=== PATIENT | male | born 1975 | race Caucasian/White ===

== ENCOUNTER 2024-09-14 04:10 | Emergency (ER) | payer BC, SELFPAY ==
[2024-09-14 04:13] VITALS: BP 124/84
[2024-09-14 04:53] LABS: % Basophils 0.4 % (0-2); % Eosinophils 4.1 % (0-6); % Immature Granulocytes 0.5 % (0-0.5); % Lymphocytes 28.8 % (20.5-51.1); % Monocytes 9.3 % (1.7-9.3); % Neutrophils 56.9 % (42.2-75.2); Absolute Eosinophils 0.2 10^3/uL (0-0.7); Absolute Lymphocytes 1.6 10^3/uL (1.2-3.4); Absolute Monocytes 0.5 10^3/uL (0.1-0.6); Absolute Neutrophils 3.2 10^3/uL (1.4-6.5); Hemoglobin 13.4 g/dL (13.0-18.0); Mean Corp Hgb Conc. 34.4 g/dL (33.0-37.0); Mean Corpuscular Hgb 28.5 pg (27.0-31.0); Mean Platelet Volume 9.8 fL (7.4-10.4); Nucleated Red Blood Cells % 0 % (-); Platelet Count 284 10^3/uL (130-400); Red Cell Dist. Width 12.5 % (11.5-14.5); White Blood Cell Count 5.6 10^3/uL (4.8-10.8)
--- NOTE | 2024-09-14 05:11 | ED.GENMED ---
History of Present Illness
General
Chief Complaint: Abdominal Pain
Source: patient
Exam Limitations: none
Time Seen by Provider: 09/14/24 04:59
Nursing documentation reviewed up to this point in time: agreed with
History of Present Illness
History of Present Illness:
Pleasant 49-year-old male presents to the emergency department with upper abdominal pain. He states that he 'feels like his ribs need to crack '. Patient states that this pain began yesterday morning. He states that the pain waxed and waned
throughout the day. He was awakened from sleep tonight so he came into the emergency department. He does report breathing exacerbates the pain. Denies nausea or vomiting. Reports no other medical history. States he did drink some alcoholic
beverages on Thursday but felt fine on Thursday and Thursday. 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 Reports no fever, chills, nausea or vomiting.
Past History
Past History
ED Past Medical History: None
ED Past Surgical History: None
Social History
Tobacco: Non-smoker
Alcohol: Occasional
Drug: None
Personal:
Living: with family
Employment: Employed
Family History
Family History: Other
Review of Systems
Review of Systems
Allergies reviewed?: Yes
All Other Systems: ROS reviewed and negative except as documented in HPI and ROS
Constitutional: Reports no symptoms
EENT: Reports no symptoms
Respiratory: Reports no symptoms
Cardiac: Reports no symptoms
ABD/GI: Reports abdominal pain
: Reports no symptoms
Musculoskeletal: Reports no symptoms
Skin: Reports no symptoms
Neurological: Reports no symptoms
Endocrine: Reports no symptoms
Hematologic/Lymphatic: Reports no symptoms
Psychiatric: Reports no symptoms
Phy Exam
General Physical Exam
General Presentation: well appearing and no apparent distress
General Skin: warm and dry
General Habitus: normal
General Mental: alert
General Hydration: appears well hydrated
ENT Exam
ENT Exam: EOMI, pharynx normal, neck supple and normocephalic
Eye Exam
Eye Exam: PERRL, cornea clear and conjunctiva normal
Cardiovascular Exam
Cardiovascular Exam: regular rate/rhythm, no edema, no murmur and normal peripheral pulses
Pulmonary Exam
Pulmonary Exam: lungs clear, no respiratory distress, no rales, no crackles, no rhonchi, no stridor, no wheezing and no cough
Gastrointestinal Exam
Gastrointestinal Exam: normal bowel sounds, non tender, soft, no organomegaly, no pulsatile mass and non distended
Neurological Exam
Neurological Exam: alert, oriented x3, no motor deficits and speech normal
Musculoskeletal Exam
Musculoskeletal Exam: full ROM and no edema
Skin Exam
Skin Exam: normal color, warm/dry, no rash and no petechia
Psychiatric Exam
Psychiatric Exam: normal mood/affect
Scores
PE Wells Score
Symptoms of DVT: No
No alternative diagnosis better explains the illness: No
Tachycardia with pulse > 100: No
Immobilization (>=3 days) or surgery within previous 4 weeks: No
Prior history of DVT or pulmonary embolism: No
Presence of hemoptysis: No
Presence of malignancy: No
Pulmonary Embolism Risk Score: 0
Probability of PE: Pt is low risk
Course
Orders/Labs/Results
Orders:
Orders
09/14/24 04:42
Complete Blood Count/With Diff Urgent
Comprehensive Metabolic Panel Urgent
Lipase Urgent
Comment: ADD ON
Troponin I Urgent
09/14/24 05:11
Add On- LAB Urgent
Tests Added?: lipase
US Abdomen Complete/Upper Urgent
Comment:
Reason For Exam: upper abd pain
09/14/24 05:49
CR Chest - 2 Views Urgent
Comment:
Reason For Exam: rib pain
09/14/24 06:34
Electrocardiogram (*1) Urgent
Reason for Study: Abdominal Pain
EKG- Treatment ONCE
09/14/24 06:52
D-Dimer Urgent
Abnormal Lab Results
09/14/24
04:42
Glucose 100 H mg/dl
(70-99)
09/14/24 04:42
09/14/24 04:42
Vital Signs
Initial and Last Documented VS:
Initial Vital Signs
Temp Pulse Resp BP Pulse Ox
97.9 F 67 16 124/84 100
09/14/24 04:13 09/14/24 04:13 09/14/24 04:13 09/14/24 04:13 09/14/24 04:13
Last Documented Vital Signs
Temp Pulse Resp BP Pulse Ox
97.9 F 61 17 113/71 97
09/14/24 04:13 09/14/24 06:29 09/14/24 06:29 09/14/24 06:29 09/14/24 06:29
*Critical Care Note
Total Time (30-74mins, 75-104mins- exclusive of procedures): Not Applicable
Update Note
Update Note:
US abdomen, complete
No prior imaging for comparison
IMPRESSION:
�Heterogeneous hepatic parenchyma, without focal liver mass where seen. Smooth capsular contours. Hepatopetal portal venous flow.
�Normal gallbladder, without shadowing gallstone. No significant gallbladder wall thickening or pericholecystic fluid. Reported negative sonographic Mehta sign.
�No significant intrahepatic or extrahepatic biliary ductal dilation. CBD measures 4.4 mm.
�Pancreas normal where seen.
�Normal appearance of the bilateral kidneys, without hydronephrosis, nephrolithiasis or striated nephrogram.
� Spleen measures 10.3 cm, normal.
� Nonaneurysmal abdominal aorta
Patient is resting comfortably at this time.
D-dimer added as patient stated that his brother had a PE in the past. Well score makes patient low risk
ED Attending Note
-
Portions of this chart may have been created with voice recognition software.� Occasional wrong word or��sound alike� substitutions may have occurred due to the inherent limitations of voice recognition software.
Discharge Plan
Departure
Instructions: Abdominal Pain
Prescriptions:
No Action
No Current Medications
0
Referrals:
TAMRA RAVI, DO [Family Provider] -
Activity Restrictions/Additional Instructions:
It was a pleasure meeting you and taking part in your care. We hope for your continued healing and wellness.
Please read discharge instructions in their entirety. However, they are for general education and may not describe your exact diagnosis at discharge. Information on your ER visit and medical conditions were discussed with you along with appropriate
follow up information...
If indicated, please take your medications as instructed and indicated on discharge paperwork.
Please schedule a follow up appointment as directed. Call to schedule an appointment
Please return to the emergency department with ANY change in, persisting, or worsening of symptoms. If any of your symptoms do not improve, or persist, or become more severe within 6-12 hours, please return to the emergency department for further
care.
Please return to the emergency department if you develop a headache, neck pain/stiffness, fever greater than 100.4F, chest pain, shortness of breath, persistent nausea, vomiting, slurred speech, difficulty walking, numbness/tingling, weakness, signs
of infection or any other symptoms that are worrisome to you.
If you have any questions or concerns please do not hesitate to call the Hospital at or E-mail me directly at [email or web address]
Interventions
Interventions:
*Risk Screen - Suicide Last Done: 09/14/24 04:13
*Neglect/Abuse Screening Last Done: 09/14/24 04:13
*ED- Fall Risk Assessment Last Done: 09/14/24 04:13
*ED COVID-19 Vaccine History Last Done: 09/14/24 04:13
YX-Ssvmjq-Pahzmvuvgo Assessment Last Done: 09/14/24 04:43
Discharge Date and Time
Print Language: IRISH
[2024-09-14 05:16] LABS: ALT (SGPT) 23 U/L (0-50); AST (SGOT) 24 U/L (17-59); Albumin 4.3 g/dl (3.5-5.0); Alkaline Phosphatase 46 U/L (38-126); Blood Urea Nitrogen 19 mg/dl (9-20); Calcium 9.8 mg/dl (8.4-10.2); Carbon Dioxide 29 mmol/L (22-30); Glucose 100 mg/dl (70-99); Total Bilirubin 0.8 mg/dl (0.2-1.3); eGFR > 60.00
[2024-09-14 05:23] LABS: Chloride 105 mmol/L (98-107); Potassium 4.8 mmol/L (3.5-5.1); Sodium 142 mmol/L (135-145)
[2024-09-14 05:25] LABS: Troponin I < 0.012 ng/ml
[2024-09-14 05:49] LABS: Lipase 111 U/L (23-300)
[2024-09-14 06:29] VITALS: BP 113/71
[2024-09-14 07:30] VITALS: BP 119/80
[2024-09-14 08:10] LABS: D-Dimer < 0.27 ug/mlFEU (0.00-0.50)
== END 2024-09-14 09:11 | disposition home or self-care (01) ==
LOC: EMR 04:10
PROVIDERS: EMERGENCY PHYSICIAN Student in an Organized Health Care Education/Training Program; FAMILY PHYSICIAN Family Medicine
DX: R10.10 Upper abdominal pain, unspecified (principal)
CPT/HCPCS: 99285; 71046; 76700; 80053; 83690; 84484; 85025; 85379; 93005